=== PATIENT | male | born 1980 | race African-American/Black ===

== ENCOUNTER 2021-12-24 09:05 | Emergency (ER) | payer BC ==
[~2021-12-24] VITALS: Ht 167.6 cm; Wt 93.0 kg
[2021-12-24 09:10] VITALS: BP 136/88
[2021-12-24] MEDS ORDERED: OXYMETAZOLINE HCL SPRAY 15 ML BOTTLE EN SCH (10:00)
[2021-12-24] MEDS ORDERED: ONDANSETRON ODT 4MG TAB SL ONE (10:00)
[2021-12-24] MEDS ORDERED: BENZONATATE 100 MG CAPSULE PO ONE (10:00)
== END 2021-12-24 11:23 | disposition home or self-care (01) ==
LOC: EDH 09:05
DX: J06.9 Acute upper respiratory infection, unspecified (principal); R09.81 Nasal congestion; Z20.822 Contact with and (suspected) exposure to COVID-19; Z88.6 Allergy status to analgesic agent
CPT/HCPCS: 87635; 87804 ×2; 99283; C9803